=== PATIENT | female | born 1985 | race Caucasian/White ===

== ENCOUNTER → 2016-06-05 | Outpatient (CLI) | payer OTHER ==
[~2016-06-05] MED LIST: IBUP-232 PO; OXYC1TAB63 PO
[2016-06-05 07:42] LABS: HEMATOCRIT 36.1 % (35.0-46.0); REVIEW FLAG FINAL
== END ==
LOC: CLAB 07:11
PROVIDERS: ATTEND Obstetrics & Gynecology
DX: Z34.93 Encounter for supervision of normal pregnancy, unspecified, third trimester (principal); Z3A.25 25 weeks gestation of pregnancy
CPT/HCPCS: 36415; 82951; 82952; 85014; 85018; 86703; 87340

== ENCOUNTER → 2016-06-13 | Outpatient (CLI) | payer OTHER | LOC: CDED 15:01 | PROVIDERS: ATTEND Obstetrics & Gynecology | DX: O24.419 Gestational diabetes mellitus in pregnancy, unspecified control (principal) | CPT/HCPCS: 97802 ==

== ENCOUNTER → 2016-07-05 | Outpatient (CLI) | payer OTHER ==
[2016-07-05 14:13] LABS: HEMOGLOBIN A1a 0.8 %; HEMOGLOBIN A1b 0.9 %; HEMOGLOBIN Ao 87.3 %; HEMOGLOBIN F 0.6 %; HEMOGLOBIN LA1C 1.8 %; HEMOGLOBIN P3 3.3 %
== END ==
LOC: CLAB 10:15
PROVIDERS: ATTEND Obstetrics & Gynecology
DX: Z34.90 Encounter for supervision of normal pregnancy, unspecified, unspecified trimester (principal)
CPT/HCPCS: 36415; 83036

== ENCOUNTER → 2016-07-29 | Outpatient (CLI) | payer OTHER ==
[2016-07-29 13:51] LABS: AUTOMATED NEUTROPHIL # 6.8 TH/MM3 (1.8-7.7); BASOPHIL # 0.1 TH/MM3 (0-0.2); BASOPHIL % 0.7 % (0.0-2.0); EOSINOPHIL # 0.1 TH/MM3 (0-0.4); EOSINOPHIL % 0.6 % (0.0-4.0); HEMATOCRIT 35.6 % (35.0-46.0); HEMO FLAGS DIFF FINAL; LYMPH % 19.8 % (9.0-44.0); LYMPHOCYTE # 1.9 TH/MM3 (1.0-4.8); MEAN CELL VOLUME 86.5 FL (80.0-100.0); MEAN CORPUSCULAR HEMOGLOBIN 29.8 PG (27.0-34.0); MEAN CORPUSCULAR HGB CONC 34.5 % (32.0-36.0); MONO % 8.1 % (0.0-8.0); NEUT % 70.8 % (16.0-70.0); PLATELET COUNT 265 TH/MM3 (150-450); RED BLOOD COUNT 4.12 MIL/MM3 (4.00-5.30); RED CELL DISTRIBUTION WIDTH 14.4 % (11.6-17.2); WHITE BLOOD COUNT 9.5 TH/MM3 (4.0-11.0)
[2016-07-29 14:15] LABS: BLOOD, URINE NEG (NEG); CALCIUM OXALATE CRYSTALS,URINE MANY /hpf; GLUCOSE,URINE NEG (NEG); KETONE, URINE NEG (NEG); MUCUS URINE FEW /lpf (OCC); NITRITE,URINE NEG (NEG); SQUAMOUS EPITHELIAL CELL URINE 6 /hpf (0-5); URINE COLOR YELLOW (YELLW/STRAW)
[2016-07-29 14:43] LABS: ALT (GPT) 12 U/L (10-53); ANION GAP 10 MEQ/L (5-15); AST (GOT) 15 U/L (15-37); BICARBONATE 22.4 MEQ/L (21.0-32.0); BLOOD UREA NITROGEN 4 MG/DL (7-18); CHLORIDE 107 MEQ/L (98-107); GLOMERULAR FILTRATION RATE 149 ML/MIN (>89); GLUCOSE,FASTING 88 MG/DL (74-99); POTASSIUM 3.7 MEQ/L (3.5-5.1); SODIUM (NA) 139 MEQ/L (136-145); URIC ACID 3.7 MG/DL (2.6-6.0)
[2016-07-29 14:46] LABS: ALKALINE PHOSPHATASE 99 U/L (45-117); TOTAL BILIRUBIN ADULT 0.3 MG/DL (0.2-1.0)
== END ==
LOC: CLAB 12:59
PROVIDERS: ATTEND Obstetrics & Gynecology
DX: O99.810 Abnormal glucose complicating pregnancy (principal); Z3A.33 33 weeks gestation of pregnancy; B96.89 Other specified bacterial agents as the cause of diseases classified elsewhere
CPT/HCPCS: 36415; 80053; 81001; 82570; 84156; 84550; 85025; 87086

== ENCOUNTER 2016-08-29 15:28 | Inpatient (IN) | payer OTHER ==
[2016-08-30] VITALS (11 sets, daily range): BP systolic 108–140; BP diastolic 62–76; PULSE 81–93; RESP 16–18; TEMP 97.6–98.2; O2SAT 94–99
--- NOTE | 2016-08-30 11:41 | HHI.HP ---
HPI Chief Complaint transverse presentation and suspected macrosomia. Date Seen: Aug 30, 2016 Travel History International Travel<30 Days: No Contact w/Intl Traveler<30Days: No Known Affected Area: No History of Present Illness HPI 30 G1 with iup at 39w3d being admitted for primary cd for transverse presentation. + FM, neg ctx/vb/lof. PNC c/b GDM, on metformin, suspected macrosomia, obesity. 24 lb wt gain this . History Past Medical History Medical History: Denies Significant Hx Past Surgical History Surgical History: No Previous Surgery Family History Family History: Negative Social History Alcohol Use: No Tobacco Use: No (prior use) Substance Abuse: No Allergies-Medications (Allergen,Severity, Reaction): Coded Allergies: No Known Allergies (Unverified , 08/30/16) Home Meds Active Scripts Oxycodone-Acetaminophen 5-325 mg Tab1 Tab PO Q4H PRN (PAIN SCALE 3 TO 5) #30 TAB Prov:Portillo Rogers MD 09/01/16 Ibuprofen 600 Mg [id number] Mg PO Q6H PRN ( CRAMPING) #30 TAB Prov:Portillo Rogers MD 09/01/16 Review of Systems General / Constitutional: No: Fever, Weight Gain, Chills, Other Eyes: No: Diploplia, Blurred Vision, Visual changes, Pain, Photophobia HENT: No: Headaches, Vertigo, Lightheadedness Cardiovascular: No: Irregular Rhythm, Chest Pain or Discomfort, Palpitations, Tachycardia, Syncope, Varicosities, Edema, Cyanosis Respiratory: No: Cough, Short of Breath, Other Gastrointestinal: No: Nausea, Vomiting, Diarrhea Genitourinary: No: Decreased Urinary Output, Oliguria Musculoskeletal: No: Limited ROM, Weakness, Cramping, Edema, Pain Skin: No Rash, No Itching, No Dryness, No Lumps, No Change in Pigmentation, No Change in Nails, No Alopecia, No Lesions Neurologic: No: Weakness, Dizziness, Syncope, Focal Abnormalities, Coordination Problem, Headache, Slurred Speech, Seizures Psychiatric: No: Depression, Suicidal Ideations, Homicidal Ideation Endocrine: No: Heat Intolerance, Cold Intolerance, Polydipsia, Polyuria, Other Physical Exam Narrative GENERAL: Well-nourished, well-developed patient. SKIN: Warm and dry. HEAD: Normocephalic and atraumatic. EYES: No scleral icterus. No injection or drainage. ENT: No nasal drainage noted. Mucous membranes pink. Airway patent. NECK: Supple, trachea midline. No JVD. CARDIOVASCULAR: Regular rate and rhythm without murmurs, gallops, or rubs. RESPIRATORY: Breath sounds equal bilaterally. No accessory muscle use. BREASTS: Bilateral exam showed no masses , no retractions, no nipple discharge. ABDOMEN/GI: Abdomen soft, non-tender, bowel sounds present, no rebound, no guarding Gravid to 41 weeks size Fundal Height: [-] GENITOURINARY: External Genitalia: intact and normal in appearance BUS glands: [-] Cervix:ft/th/hi Presentation:transverse Membranes: [intact Uterine Contractions: [-] FHT's: bpp 8/8 in the office EXTREMITIES: No cyanosis or edema. BACK: Nontender without obvious deformity. No CVA tenderness. NEUROLOGICAL: Awake and alert. Motor and sensory grossly within normal limits. Five out of 5 muscle strength in all muscle groups. Normal speech. Data Data Vital Signs Reviewed: Yes Orders Admit To Inpatient (08/30/16 ) Vital Signs (Adult) .ON ADMISSION (08/30/16 11:36) Activity Oob Ad Rosie (08/30/16 11:36) Heart (08/30/16 11:36) Urinary Catheter Management PEDRO.Q8H (08/30/16 11:36) ^ Preps (08/30/16 11:36) Scd / Dillon / Foot Pump PEDRO.QSHIFT (08/30/16 11:36) ^ Ultrasound For Locatio (08/30/16 11:36) Diet Npo (08/30/16 Lunch) Lactated Ringer's 1000 Ml Inj (Lr 1000 M (08/30/16 11:36) Lactated Ringer's 1000 Ml Inj (Lr 1000 M (08/30/16 12:06) Cefazolin 2 Gm Premix (Ancef 2 Gm Premix (08/30/16 12:45) Citric Acid-Sodium Citrate Liq (Bicitra (08/30/16 13:15) Type And Screen (08/30/16 11:36) Complete Blood Count With Diff (08/30/16 11:36) Urinalysis - C+S If Indicated (08/30/16 11:36) Inpatient Certification (08/30/16 ) Specimen To Be Collected PRN (08/30/16 11:36) Assessment/Plan Problem List: (1) Malpresentation before onset of labor (2) Gestational diabetes mellitus (3) Morbid obesity Assessment and Plan 30 yo G1 with iup at 39w3d admitted for primary cd for malpresentation 1) transverse presentation with macrosomia- not candidate for version. r/b/a discussed. postop course discussed 2) gestational diabetes, good control. 3) fetus EFW 9 lb 1 oz last week. Sangeeta Renee MD Aug 30, 2016 11:41
[2016-08-30] MEDS ORDERED: LACTATED RINGER'S 1000 ML INJ 1,000 ML IV ONE (12:00)
[2016-08-30 12:19] LABS: AUTOMATED NEUTROPHIL # 7.4 TH/MM3 (1.8-7.7); BASOPHIL % 0.5 % (0.0-2.0); EOSINOPHIL % 0.3 % (0.0-4.0); HEMATOCRIT 40.1 % (35.0-46.0); HEMO FLAGS DIFF FINAL; LYMPH % 16.2 % (9.0-44.0); LYMPHOCYTE # 1.6 TH/MM3 (1.0-4.8); MEAN CELL VOLUME 86.4 FL (80.0-100.0); MEAN CORPUSCULAR HEMOGLOBIN 29.9 PG (27.0-34.0); MEAN CORPUSCULAR HGB CONC 34.6 % (32.0-36.0); PLATELET COUNT 250 TH/MM3 (150-450); RED BLOOD COUNT 4.64 MIL/MM3 (4.00-5.30); RED CELL DISTRIBUTION WIDTH 14.6 % (11.6-17.2); WHITE BLOOD COUNT 9.7 TH/MM3 (4.0-11.0)
[2016-08-30 12:28] LABS: BACTERIA, URINE OCC /hpf; BLOOD, URINE NEG (NEG); COMMENT (UR) CULT NOT INDICATED; CULTURE IF INDICATED CULT NOT INDICATED; GLUCOSE,URINE NEG (NEG); KETONE, URINE 80 mg/dL (NEG); MUCUS URINE FEW /lpf (OCC); NITRITE,URINE NEG (NEG); SQUAMOUS EPITHELIAL CELL URINE 7 /hpf (0-5); URINE COLOR YELLOW (YELLW/STRAW)
[2016-08-30] MEDS ORDERED: LACTATED RINGER'S 1000 ML INJ 1,000 ML IV SCH ×2 (12:30→19:40)
[2016-08-30] MEDS ORDERED: ceFAZolin 2 GM PREMIX 50 ML IV SCH (12:45)
[2016-08-30] MEDS ORDERED: OXYTOCIN 10 UNIT/ML AMP ONE (13:00)
[2016-08-30] MEDS ORDERED: ACETAMINOPHEN 1000 MG/100 ML VIAL IV ONE ×2 (13:00→14:45)
[2016-08-30] MEDS ORDERED: ceFAZolin INJ 1,000 MG VIAL ONE (13:08)
[2016-08-30] MEDS ORDERED: CITRIC ACID-SODIUM CITRATE LIQ 30 ML UDC PO SCH (13:15)
[2016-08-30 14:16] LABS: BLOOD GAS BASE EXCESS -0.3 mmol/L (-2-2); BLOOD GAS O2 HGB SATURATION 14 % (90-100); CORD BLOOD GAS HCO3 25 mmol/L (21-29); CORD BLOOD GAS PCO2 49 mmHG (34-78); CORD BLOOD GAS PH 7.33 (7.14-7.42)
[2016-08-30 14:17] LABS: CORD BLOOD GAS PO2 11 mmHG (3.0-40.0); DRAW SITE CORD BLOOD; STAT NO
[2016-08-30] MEDS ORDERED: MORPHINE SULFATE PF 5 MG/10 ML VIAL ONE (14:37)
--- NOTE | 2016-08-30 14:40 | PD.OB.DELI ---
Procedure Note Section Procedure Pre Op Diagnosis: (1) Malpresentation before onset of labor (2) Gestational diabetes mellitus (3) Morbid obesity Post Op Diagnosis: (1) Malpresentation before onset of labor (2) Gestational diabetes mellitus (3) Morbid obesity Performed by Sangeeta Renee Procedure: Primary Low Transverse Sec Indication for delivery: malposition Informed consent obtained: For anesthesia, For procedure Confirmed correct: Patient, Procedure, Site, Time-out taken Anesthesia: Spinal Medication prior to procedure: As documented in eMAR Monitoring during procedure: Blood pressure monitoring, Pulse oximetry Urinary catheter: Inserted using sterile technique, To dependent drainage, ml urine output (100) Sterile preparation: With 2% chlorexidine (Hibiclens) Position: Supine with wedge to right side, Supine with safety belt applied Operative Features Skin Incision: Pfannenstiel Uterine Incision: Low transverse w/knife / scissors Membranes Ruptured: Artificially, Amount of liquid (copious), Appearance of fluid (cl) Presentation: Breech (footling breech, unstable presentation due to polyhydramnios) Delivery of infant: Other (breech extraction) Infant: Female One Minute : 1 Five Minute : 9 Weight: 3650g Status of infant: Viable, Cord blood, Nursery present Placenta delivered: Intact Medications: Antibiotics, Oxytocin Estimated blood loss: 800ml Procedure tolerated: Well Maternal Condition: Stable Baby Complications: Other (see nursery notes) Condition: Stable Procedure in detail dictated Sangeeta Renee MD Aug 30, 2016 14:40
[2016-08-30] MEDS ORDERED: oxyCODONE/ACETAMINOPHEN 5 MG/325 MG TAB PO PRN ×2 (14:45)
[2016-08-30] MEDS ORDERED: SIMETHICONE 80 MG CHEWABLE TAB PO PRN (14:45)
[2016-08-30] MEDS ORDERED: ONDANSETRON HCL 4 MG/2 ML VIAL IV PUSH PRN (14:45)
[2016-08-30] MEDS ORDERED: OXYTOCIN 30 UNITS-500ML PREMIX 500 ML IV ONE (14:45)
[2016-08-30] MEDS ORDERED: SODIUM CHLORIDE 0.9% FLUSH 10 ML FLUSH IV FLUSH PRN (14:45)
--- NOTE | 2016-08-30 14:54 | HHI.DCPOC ---
Discharge Care Plan Diagnosis: (1) delivery indicated due to breech presentation Your Health Problems Are: delivery Report Symptoms to Your Doctor -Temperate above 100.5 degrees -Redness, of incision or excessive or foul smelling drainage -Unusual pain or calf pain -Increased vaginal bleeding -Painful or difficulty urinating -Feelings of extreme sadness or anxiety after 2 weeks Goals to Promote Your Health * To prevent worsening of your condition and complications * To maintain your health at the optimal level Directions to Meet Your Goals Take your medications as prescribed Follow your dietary instruction Follow activity as directed Ensure plenty of rest for recovery Drink fluids for hydration Keep your appointments as scheduled Take your immunizations and boosters as scheduled If your symptoms worsen call your PCP, if no PCP go to Urgent Care Center or Emergency Room Smoking is Dangerous to Your Health. Avoid second hand smoke Call the 24-hour crisis hotline for domestic abuse at Sangeeta Renee MD Aug 30, 2016 14:54
[2016-08-30] MEDS ORDERED: EPIDURAL-NO SYSTEMIC NARCOTICS PRN (16:30)
[2016-08-30] MEDS ORDERED: EPIDURAL-NALOXONE HCL 0.4 MG/ML AMP IV PRN (16:30)
[2016-08-30] MEDS ORDERED: EPIDURAL-DO NOT ADMINISTER ANTICOAGULANTS PRN (16:30)
[2016-08-30] MEDS ORDERED: EPIDURAL-DIPHENHYDRAMINE HCL 50 MG/ML VIAL IV PUSH PRN (16:30)
[2016-08-30] MEDS ORDERED: EPIDURAL-DIPHENHYDRAMINE HCL 50 MG CAP PO PRN (16:30)
[2016-08-30] MEDS ORDERED: SODIUM CHLORIDE 0.9% FLUSH 10 ML FLUSH IV FLUSH SCH (21:00)
[2016-08-30] MEDS ORDERED: ZOLPIDEM TARTRATE 5 MG TAB PO PRN (21:00)
[2016-08-31 00:10] VITALS: BP 115/61; PULSE 85; RESP 19; TEMP 98.2
[2016-08-31] MEDS: IBUPROFEN 600 MG TAB PO PRN ×4 (00:40→19:59)
[2016-08-31] MEDS ORDERED: OXYTOCIN 30 UNITS-500ML PREMIX 500 ML IV PRN (00:45)
[2016-08-31 04:10] VITALS: BP 115/61; PULSE 84; RESP 19; TEMP 98.2
[2016-08-31 05:51] LABS: AUTOMATED NEUTROPHIL # 10.8 TH/MM3 (1.8-7.7); BASOPHIL # 0.1 TH/MM3 (0-0.2); BASOPHIL % 0.6 % (0.0-2.0); EOSINOPHIL % 0.3 % (0.0-4.0); HEMO FLAGS DIFF FINAL; LYMPH % 9.7 % (9.0-44.0); LYMPHOCYTE # 1.3 TH/MM3 (1.0-4.8); MEAN CELL VOLUME 86.9 FL (80.0-100.0); MEAN CORPUSCULAR HEMOGLOBIN 29.8 PG (27.0-34.0); MEAN CORPUSCULAR HGB CONC 34.3 % (32.0-36.0); MONO % 7.4 % (0.0-8.0); PLATELET COUNT 219 TH/MM3 (150-450); RED BLOOD COUNT 4.14 MIL/MM3 (4.00-5.30); RED CELL DISTRIBUTION WIDTH 14.8 % (11.6-17.2); WHITE BLOOD COUNT 13.2 TH/MM3 (4.0-11.0)
[2016-08-31 08:00] VITALS: BP 113/56; PULSE 85; RESP 20; TEMP 98.2
--- NOTE | 2016-08-31 10:47 | HHI.OB ---
Subjective Post Operative Day: 1 Remarks POD#1, stable, no significant c/o Objective Vitals/I&O Vital Signs Date Time Temp Pulse Resp B/P Pulse Ox O2 Delivery O2 Flow Rate FiO2 08/31/16 08:00 113/56 08/31/16 08:00 98.2 20 08/31/16 08:00 85 113/56 08/31/16 04:10 84 115/61 08/31/16 04:10 98.2 19 08/31/16 00:10 98.2 85 19 115/61 08/30/16 20:10 98.2 93 18 108/68 08/30/16 17:28 18 08/30/16 16:40 81 117/67 08/30/16 16:40 97.6 18 08/30/16 16:01 99 08/30/16 15:55 86 16 98 08/30/16 15:55 135/64 08/30/16 15:49 98.2 08/30/16 15:40 91 138/76 97 08/30/16 15:25 82 140/70 08/30/16 15:25 82 140/70 08/30/16 15:19 16 94 08/30/16 15:02 95 08/30/16 15:02 93 18 125/63 08/30/16 14:41 97.9 93 18 130/62 97 Result Diagram: 08/31/16 0514 Objective Remarks GENERAL: Well-nourished, well-developed patient. CARDIOVASCULAR: Regular rate and rhythm without murmurs, gallops, or rubs. RESPIRATORY: Breath sounds equal bilaterally. No accessory muscle use. ABDOMEN/GI: Abdomen soft, non-tender, bowel sounds present. Incision: Clean, dry and intact. Fundus: Firm, non-tender at umbilicus. GENITOURINARY: Light to moderate bleeding. EXTREMITIES: No cyanosis or edema, non-tender, without signs of DVT. Medications and IVs Current Medications Medications (Trade) Dose Ordered Sig/Axel Route Start Time Stop Time Status Last Admin (Lr 1000 ml Inj) 1,000 ml @ 100 mls/hr Q10H IV 08/30/16 19:40 08/31/16 15:39 08/30/16 20:35 (NS Flush) 2 ml BID IV FLUSH 08/30/16 21:00 (NS Flush) 2 ml UNSCH PRN IV FLUSH 08/30/16 14:45 (Mylicon Chew) 80 mg QID PRN PO 08/30/16 14:45 (Tylenol) 650 mg Q6H PRN PO 08/30/16 14:45 (Motrin) 600 mg Q6H PRN PO 08/30/16 14:45 08/31/16 06:28 (Percocet 5-325 Mg) 1 tab Q4H PRN PO 08/30/16 14:45 (Percocet 5-325 Mg) 2 tab Q4H PRN PO 08/30/16 14:45 (Nohemi-Colace) 2 tab Q12H PRN PO 08/30/16 14:45 (Ambien) 5 mg HS PRN PO 08/30/16 21:00 (M-M-R Ii Inj) 0.5 ml ONCE ONCE SQ 08/31/16 16:00 08/31/16 16:01 (Boostrix Inj) 0.5 ml ONCE ONCE IM 08/31/16 16:00 08/31/16 16:01 (Zofran Inj) 4 mg Q6H PRN IV PUSH 08/30/16 14:45 Miscellaneous Information NO SYSTEMIC NARCOTICS TO BE GIVEN FO... UNSCH PRN .XX 08/30/16 16:30 08/31/16 16:29 (Narcan Inj) 0.4 mg UNSCH PRN IV 08/30/16 16:30 08/31/16 16:29 (Benadryl Inj) 25 mg Q6H PRN IV PUSH 08/30/16 16:30 08/31/16 16:29 (Benadryl) 50 mg Q6H PRN PO 08/30/16 16:30 08/31/16 16:29 Miscellaneous Information ALL NURSING DEPARTMENTS UNSCH PRN .XX 08/30/16 16:30 08/31/16 16:29 Assessment/Plan Problem List: (1) Malpresentation before onset of labor (2) Gestational diabetes mellitus (3) Morbid obesity Assessment and Plan POD#1, s/p LTCS, stable Discharge Planning Plan for POD 2-3 Portillo Rogers MD Aug 31, 2016 10:47
[2016-08-31 12:00] VITALS: BP 110/55; PULSE 86; RESP 2; TEMP 97.7
[2016-08-31] MEDS: DOCUSATE SODIUM 50 MG/SENNA 8.6 MG TAB PO PRN (12:46)
[2016-08-31] MEDS ORDERED: DIPHTH/TETANUS/ACEL PERTUSSIS (BOOSTER) 0.5 ML VIAL/PFS IM ONE (16:00)
[2016-08-31] MEDS ORDERED: MEASLES, MUMPS, RUBELLA VACCINE 0.5 ML VIAL SQ ONE (16:00)
--- NOTE | 2016-08-31 17:51 | MP ---
cc: MARIANNA RENEE MD DATE OF SURGERY 08/30/2016 PREOPERATIVE DIAGNOSIS 1. Malpresentation transverse presentation. 2. Gestational diabetes. 3. Morbid obesity. POSTOPERATIVE DIAGNOSIS 1. Malpresentation, footling breech but unstable lie. 2. Polyhydramnios. 3. Gestational diabetes mellitus. 4. Morbid obesity SURGEON Yuliya Renee MD [employer] OPERATOR [facility] PROCEDURE PERFORMED Primary low transverse section INDICATION The patient is a 30-year-old G1 with an intrauterine of 39 weeks and 2 days who was noted to be transverse lie on ultrasound two weeks in our own clinic. Last ultrasound was yesterday. Baby was suspected to be approximately 9 pounds on ultrasound. Given the baby's large size, the patient's body habitus, it was discussed that she was not a good candidate for attempt at version, discussed the risks, benefits, alternatives. The patient and family were amendable to primary delivery. Consents were signed and reviewed prior to procedure. Preoperative antibiotics Ancef 2 grams IV given pre-incision. DVT prophylaxis - SCDs to lower extremities. COMPLICATIONS None. COUNTS Correct x3 ESTIMATED BLOOD LOSS 800 mL URINE OUTPUT clear yellow urine. IV FLUIDS 1800 mL of lactated Ringer. SPECIMENS Cord blood and cord gas INTRAOPERATIVE FINDINGS Viable male infant, Apgars of two and nine, at 1 m in and 5 min respectively. Copious amniotic fluid. The baby was in a single footling breech presentation with a compound left arm. Normal placenta with three-vessel cord. Tubes and ovaries within normal limits. PROCEDURE IN DETAIL After review of informed consent, the patient was taken to the operating room where spinal anesthesia was administered without complication. A Block was placed under sterile condition. The abdomen was prepped and draped in normal sterile fashion.A retentus was used to retract the pannus. A time-out was taken prior to procedure. A Pfannenstiel skin incision was made with a scalpel to the underlying layer of fascia with the Bovie. The fascia was incised in the midline. This was extended bilaterally with Valverde scissors. The Ananth clamps were used to elevate the superior aspect of the fascial incision and the rectus muscles were dissected off bluntly. The same was repeated inferiorly. The rectus muscles were bluntly. The peritoneum was entered sharply with Metzenbaum scissors after tenting with hemostats. The bladder blade was placed. A bladder flap was created with Metzenbaum scissors and further developed digitally. The bladder blade was replaced. The presenting part was unstable, palpated cephalic but baby was very ballotable. A low transverse uterine segment incision was made with a scalpel. The amnion was entered by sharp pickups. After the surgeon hand was introduced into the uterus, the head was palpated but the feet were anterior and caudad to the head. The lower uterine segment was very thick and the hysterotomy was extended with bandage scissors to allow adequate delivery of the fetus. One foot was grasped in the surgeon's hand. This was followed out to the hip and the other leg was followed out to the other foot. Both feet were gently grasped and brought out through the hysterotomy. The baby was wrapped in a moist towel. The hips were then grasped and brought through the hysterotomy. The abdomen shortly followed to the level of the scapula. The baby was rotated, maneuver was performed. The arms were swept across the chest and delivered bilaterally. The head was then flexed and fundal pressure was used to deliver the head. Baby did have poor tone, color, sent immediately to awaiting pediatricians. The cord was double clamped and cut. A segment of cord was sent for a pH testing. Cord blood was collected. IV infusion of Pitocin started immediately after delivery of the infant. The placenta was delivered with gentle uterine massage and cord traction. The uterus was exteriorized and cleared of all clots and debris with irrigation and suctioned. The uterus was closed with #1 chromic in a running lock fashion followed by an imbricating layer. The uterus was inspected and noted to have good hemostasis. The posterior cul-de-sac was irrigated and suctioned. The uterus was returned to the abdomen. The hysterotomy was inspected noted to be hemostatic. Anterior cul-de-sac was irrigated and suctioned. The fascia was closed with #1-0 Vicryl in a running lock fashion. The subcutaneous tissue was irrigated and hemostasis was obtained with the Bovie. Subsequently was closed in two layers with 2-0 chromic in a running fashion. The skin was closed with 3-0 Monocryl in a subcuticular fashion. Steri-Strips and a sterile dressing were placed. The patient tolerated procedure well. MD BOB Velasquez /2:45 PM /5:33 PM MTD
[2016-08-31 22:04] VITALS: BP 127/73; PULSE 93; RESP 18; TEMP 97.5
[2016-09-01] MEDS: IBUPROFEN 600 MG TAB PO PRN ×3 (02:24→15:47)
[2016-09-01 09:10] VITALS: BP 130/75; PULSE 87; RESP 16; TEMP 97.9
[2016-09-01] MEDS: DOCUSATE SODIUM 50 MG/SENNA 8.6 MG TAB PO PRN (09:31)
--- NOTE | 2016-09-01 10:44 | HHI.OB ---
Subjective Post Operative Day: 2 Remarks POD#2, Doing well, stable for discharge Objective Vitals/I&O Vital Signs Date Time Temp Pulse Resp B/P Pulse Ox O2 Delivery O2 Flow Rate FiO2 08/31/16 22:04 97.5 93 18 127/73 08/31/16 12:00 97.7 86 2 110/55 Result Diagram: 08/31/16 0514 Objective Remarks GENERAL: Well-nourished, well-developed patient. CARDIOVASCULAR: Regular rate and rhythm without murmurs, gallops, or rubs. RESPIRATORY: Breath sounds equal bilaterally. No accessory muscle use. ABDOMEN/GI: Abdomen soft, non-tender, bowel sounds present. Incision: Clean, dry and intact. Fundus: Firm, non-tender at umbilicus. GENITOURINARY: Light to moderate bleeding. EXTREMITIES: No cyanosis or edema, non-tender, without signs of DVT. Medications and IVs Current Medications Medications (Trade) Dose Ordered Sig/Axel Route Start Time Stop Time Status Last Admin (NS Flush) 2 ml BID IV FLUSH 08/30/16 21:00 (NS Flush) 2 ml UNSCH PRN IV FLUSH 08/30/16 14:45 (Mylicon Chew) 80 mg QID PRN PO 08/30/16 14:45 08/31/16 19:59 (Tylenol) 650 mg Q6H PRN PO 08/30/16 14:45 (Motrin) 600 mg Q6H PRN PO 08/30/16 14:45 09/01/16 09:31 (Percocet 5-325 Mg) 1 tab Q4H PRN PO 08/30/16 14:45 (Percocet 5-325 Mg) 2 tab Q4H PRN PO 08/30/16 14:45 (Nohemi-Colace) 2 tab Q12H PRN PO 08/30/16 14:45 09/01/16 09:31 (Ambien) 5 mg HS PRN PO 08/30/16 21:00 (Zofran Inj) 4 mg Q6H PRN IV PUSH 08/30/16 14:45 Assessment/Plan Problem List: (1) Malpresentation before onset of labor (2) Gestational diabetes mellitus (3) Morbid obesity Assessment and Plan POD#2, s/p LTCS, stable, ready for discharge Discharge Planning Routine, today Attending Attestation seen by Portillo Bose MD Sep 01, 2016 10:43
--- NOTE | 2016-09-01 10:46 | HHI.DCPOC ---
Discharge Care Plan Your Health Problems Are: Abdominal pain Fever, temperature>100.4 delivery Report Symptoms to Your Doctor -Temperate above 100.5 degrees -Redness, of incision or excessive or foul smelling drainage -Unusual pain or calf pain -Increased vaginal bleeding -Painful or difficulty urinating -Feelings of extreme sadness or anxiety after 2 weeks Goals to Promote Your Health * To prevent worsening of your condition and complications * To maintain your health at the optimal level Directions to Meet Your Goals Take your medications as prescribed Follow your dietary instruction Follow activity as directed Ensure plenty of rest for recovery Drink fluids for hydration Keep your appointments as scheduled Take your immunizations and boosters as scheduled If your symptoms worsen call your PCP, if no PCP go to Urgent Care Center or Emergency Room Smoking is Dangerous to Your Health. Avoid second hand smoke Call the 24-hour crisis hotline for domestic abuse at Portillo Rogers MD Sep 01, 2016 10:46
[2016-09-01] MEDS ORDERED: OXYC1TAB63 PO (10:47)
[2016-09-01] MEDS ORDERED: IBUP-232 PO (10:47)
[2016-09-01] MEDS: ACETAMINOPHEN 325 MG TAB PO PRN (15:47)
[2016-09-01 20:30] VITALS: BP 117/62; PULSE 81; RESP 18; TEMP 98.3
[2016-09-02] MEDS: IBUPROFEN 600 MG TAB PO PRN ×2 (02:19→08:23)
[2016-09-02] MEDS: ACETAMINOPHEN 325 MG TAB PO PRN ×2 (02:21→08:24)
--- NOTE | 2016-09-02 07:43 | HHI.OB ---
Subjective Post Operative Day: 3 Remarks doing well, only taking tylenol and ibuprofen for pain. Objective Vitals/I&O Vital Signs Date Time Temp Pulse Resp B/P Pulse Ox O2 Delivery O2 Flow Rate FiO2 09/01/16 20:30 98.3 09/01/16 20:30 81 18 117/62 09/01/16 09:10 97.9 87 16 130/75 Result Diagram: 08/31/16 0514 Objective Remarks GENERAL: Well-nourished, well-developed patient.morbidly obese CARDIOVASCULAR: Regular rate and rhythm without murmurs, gallops, or rubs. RESPIRATORY: Breath sounds equal bilaterally. No accessory muscle use. ABDOMEN/GI: Abdomen soft, non-tender, bowel sounds present. Incision: Clean, dry and intact. Fundus: Firm, non-tender at umbilicus. GENITOURINARY: Light to moderate bleeding. EXTREMITIES: No cyanosis or edema, non-tender, without signs of DVT. Medications and IVs Current Medications Medications (Trade) Dose Ordered Sig/Axel Route Start Time Stop Time Status Last Admin (NS Flush) 2 ml BID IV FLUSH 08/30/16 21:00 (NS Flush) 2 ml UNSCH PRN IV FLUSH 08/30/16 14:45 (Mylicon Chew) 80 mg QID PRN PO 08/30/16 14:45 08/31/16 19:59 (Tylenol) 650 mg Q6H PRN PO 08/30/16 14:45 09/02/16 02:21 (Motrin) 600 mg Q6H PRN PO 08/30/16 14:45 09/02/16 02:19 (Percocet 5-325 Mg) 1 tab Q4H PRN PO 08/30/16 14:45 (Percocet 5-325 Mg) 2 tab Q4H PRN PO 08/30/16 14:45 (Nohemi-Colace) 2 tab Q12H PRN PO 08/30/16 14:45 09/01/16 09:31 (Ambien) 5 mg HS PRN PO 08/30/16 21:00 (Zofran Inj) 4 mg Q6H PRN IV PUSH 08/30/16 14:45 Assessment/Plan Problem List: (1) Malpresentation before onset of labor (2) Gestational diabetes mellitus (3) Morbid obesity Assessment and Plan POD#3, s/p LTCS, stable, ready for discharge Discharge Planning Routine, today Sangeeta Renee MD Sep 02, 2016 07:43
[2016-09-02 09:30] VITALS: BP 126/71; PULSE 78; RESP 18; TEMP 98.1
== END 2016-09-02 12:08 | disposition home or self-care (01) | DRG 765 ==
LOC: H2EB 08-30 11:03 → H1EA 08-30 16:27
PROVIDERS: ADMIT Obstetrics & Gynecology; ATTEND Obstetrics & Gynecology
PROC: 10D00Z1 Extraction of Products of Conception, Low, Open Approach (ICD-10-PCS; principal; 2016-08-30)
DX: O32.8XX0 Maternal care for other malpresentation of fetus, not applicable or unspecified (principal); O40.3XX0 Polyhydramnios, third trimester, not applicable or unspecified; O24.425 Gestational diabetes mellitus in childbirth, controlled by oral hypoglycemic drugs; O36.63X0 Maternal care for excessive fetal growth, third trimester, not applicable or unspecified; Z3A.39 39 weeks gestation of pregnancy; O99.214 Obesity complicating childbirth; E66.01 Morbid (severe) obesity due to excess calories; Z37.0 Single live birth
CPT/HCPCS: 59025; 81001; 82805; 85025; 86850; 86900; 86901; 90715; J0131; J0690; J2274; J2590; J7120